=== PATIENT | male | born 1980 | race Caucasian/White ===

== ENCOUNTER 2020-11-07 09:16 | Emergency (ER) | payer BC ==
[2020-11-07] MEDS ORDERED: predniSONE 20 MG Tab PO STA (09:54)
--- NOTE | 2020-11-07 10:03 | EDM.PDOC ---
ED HPI GENERAL MEDICAL PROBLEM - General Chief Complaint: Lower Extremity Injury/Pain Stated Complaint: GOUT IN EXTREME PAIN Time Seen by Provider: 11/07/20 09:44 - History of Present Illness INITIAL COMMENTS - FREE TEXT/NARRATIVE: Patient presents the emergency department with gout. Patient states he softly arrested a light dresser on his foot after which time it triggered one of his typical gout flares. It was not heavy and there was no marked fall of the desk and the patient states there is no concern for fracture. Patient has swelling to the ankle and toe and out to the knee. Patient has had these flares more than 50 times. Moderate to severe symptoms worse with movement. No fevers. No history of diabetes or immunosuppression. No history of blood clot. No unilateral leg swelling. No recent travel, injury, cancer, surgery. No smoking or control Right Knee Pain Score (Numeric/FACES): 7 - Related Data Allergies Allergy/AdvReac Type Severity Reaction Status Date / Time No Known Allergies Allergy Verified 11/07/20 09:42 Home Meds: Home Meds Ibuprofen [Motrin] 1,000 mg PRN 12/16/15 [History] Pantoprazole Sodium [Protonix] 40 mg PO DAILY #15 tablet. 11/07/20 [Rx] predniSONE [Prednisone] 10 mg PO ASDIRECTED 16 Days #46 tablet 11/07/20 [Rx] Past Medical History - Past Health History Medical/Surgical History: Denies Medical/Surgical History HEENT History: Reports: None Cardiovascular History: Reports: None Respiratory History: Reports: None Gastrointestinal History: Reports: None Genitourinary History: Reports: Renal Calculus Musculoskeletal History: Reports: Gout Neurological History: Reports: Migraines Psychiatric History: Reports: Anxiety, Panic Attack Endocrine/Metabolic History: Reports: None Hematologic History: Reports: None Immunologic History: Reports: None Oncologic (Cancer) History: Reports: None - Infectious Disease History Infectious Disease History: Reports: None - Past Surgical History HEENT Surgical History: Reports: None Endocrine Surgical History: Reports: None Social & Family History - Family History Family Medical History: No Pertinent Family History Endocrine/Metabolic: Reports: Diabetes, Type I - Tobacco Use Tobacco Use Status *Q: Current Every Day Tobacco User Years of Tobacco use: 15 Packs/Tins Daily: 1 - Caffeine Use Caffeine Use: Reports: Soda - Recreational Drug Use Recreational Drug Use: No Review of Systems - Review of Systems Review Of Systems: See Below Constitutional: Denies: Chills, Fever Respiratory: Denies: Shortness of Breath Cardiovascular: Denies: Chest Pain Musculoskeletal: Reports: Joint Swelling Skin: Denies: Rash Neurological: Denies: Numbness, Weakness ED EXAM, GENERAL - Physical Exam Exam: See Below Free Text/Narrative:: CONSTITUTIONAL: well appearing in no acute distress SKIN: dry, and intact without rash HENT: Normocephalic, atraumatic, NECK: normal range of motion PULMONARY: normal chest rise and fall, no respiratory distress or stridor NEUROLOGIC: normal speech, moves all extremities, grossly non-focal MUSCULOSKELETAL: Patient with swelling and tenderness and warmth to the right ankle, metatarsophalangeal joint first, knee. Warm and well perfused with strong dorsalis pedis pulse. Cap refill less than 2 seconds. No swelling to the calf area PSYCHIATRIC: normal mood and affect Course - Vital Signs Text/Narrative:: Differential diagnosis: Gout, septic arthritis, DVT, rheumatoid arthritis, other Patient presents with joint pain consistent with multiple gout flares in the past. No fever just bacterial infection. Steroids with return precautions and PCP follow-up discussed Last Recorded V/S: Last Vital Signs Temp 35.9 C L 11/07/20 09:43 Pulse 93 11/07/20 09:43 Resp 18 11/07/20 09:43 BP 138/90 11/07/20 09:43 Pulse Ox 98 11/07/20 09:43 - Orders/Labs/Meds Meds: Medications Discontinued Medications Generic Name Dose Route Start Last Admin Trade Name Shy PRN Reason Stop Dose Admin Prednisone 40 mg 11/07/20 09:54 Prednisone 20 Mg Tab PO 11/07/20 09:55 NOW STA Departure - Departure Time of Disposition: 09:58 Disposition: Home, Self-Care 01 Condition: Good Clinical Impression: Gout - Discharge Information Prescriptions: predniSONE [Prednisone] 10 mg PO ASDIRECTED 16 Days #46 tablet Pantoprazole Sodium [Protonix] 40 mg PO DAILY #15 tablet. Instructions: Low-Purine Eating Plan Referrals: PCP,None [Primary Care Provider] - Forms: ED Department Discharge Additional Instructions: Return for fevers, increased pain, numbness, weakness, increasing leg swelling, change or worsening condition or lack of improvement. Take medications as prescribed. Follow-up with primary care doctor 3 to 5 days for reevaluation The following information is given to patients seen in the emergency department who are being discharged to home. This information is to outline your options for follow-up care. We provide all patients seen in our emergency department with a follow-up referral. The need for follow-up, as well as the timing and circumstances, are variable depending upon the specifics of your emergency department visit. If you don't have a primary care physician on staff, we will provide you with a referral. We always advise you to contact your personal physician following an emergency department visit to inform them of the circumstance of the visit and for follow-up with them and/or the need for any referrals to a consulting specialist. The emergency department will also refer you to a specialist when appropriate. This referral assures that you have the opportunity for follow-up care with a specialist. All of these measure are taken in an effort to provide you with optimal care, which includes your follow-up. Primary care clinics in the area: [facility] - Primary Care [address] [place] [address] [place] [address] Under all circumstances we always encourage you to contact your private physician who remains a resource for coordinating your care. When calling for follow-up care, please make the office aware that this follow-up is from your recent emergency room visit. If for any reason you are refused follow-up, please contact the [facility] Emergency Department at and asked to speak to the emergency department charge nurse. Sepsis Event Note (ED) - Evaluation Sepsis Screening Result: No Definite Risk - Focused Exam Vital Signs: Vital Signs Temp Pulse Resp BP Pulse Ox 11/07/20 09:43 35.9 C L 93 18 138/90 98
[2020-11-07 10:32] VITALS: BP 119/89; PULSE 82
== END 2020-11-07 10:26 | disposition home or self-care (01) ==
LOC: MW.ED 09:16
DX: M10.9 Gout, unspecified (principal); Z72.0 Tobacco use
CPT/HCPCS: 99283; A9270

== ENCOUNTER 2021-03-27 10:09 | Emergency (ER) | payer BC ==
[2021-03-27] MEDS ORDERED: predniSONE 20 MG Tab PO ONE (10:27)
[2021-03-27] MEDS ORDERED: Acetaminophen/HYDROcodone 325-10 MG Tab PO ONE (10:27)
--- NOTE | 2021-03-27 10:38 | EDM.PDOC ---
ED HPI GENERAL MEDICAL PROBLEM - General Chief Complaint: Lower Extremity Injury/Pain Stated Complaint: GOUT IN R KNEE Time Seen by Provider: 03/27/21 10:12 - History of Present Illness INITIAL COMMENTS - FREE TEXT/NARRATIVE: Otherwise well 40-year-old male with a history of gout presenting with pain in the right knee gradually worsening over the last few days after kneeling down on the floor similar to multiple prior gout episodes. No fever pain is severe with attempted range of motion of the right knee. Patient has been taking some leftover 10 mg prednisone tablets from his last gout flare in October with minimal improvement. Patient was seen at this facility in October he was placed on a steroid burst and taper he reports that after the 1st few days the symptoms resolved completely and so he stopped taking the medication with a plan to save it for a later date. No other injury to the knee no other complaints pain is nonradiating. General: No fever. Skin: No rash. Neck: No neck stiffness. Respiratory: No shortness of breath. Cardiac: No chest pain. Gastrointestinal: No nausea, vomiting or abdominal pain. Urinary: No dysuria. Musculoskeletal: Per HPI Neurologic: No headache. Right Knee Pain Score (Numeric/FACES): 8 - Related Data Allergies Allergy/AdvReac Type Severity Reaction Status Date / Time No Known Allergies Allergy Verified 03/27/21 10:32 Home Meds: Home Meds Ibuprofen [Motrin] 1,000 mg PRN 12/16/15 [History] Pantoprazole Sodium [Protonix] 40 mg PO DAILY #15 tablet. 11/07/20 [Rx] predniSONE [Prednisone] 10 mg PO ASDIRECTED 16 Days #46 tablet 11/07/20 [Rx] Hydrocodone/Acetaminophen [HYDROcodone-Acetaminophen 10-325 MG] 1 each PO TID PRN 4 Days #12 tab 03/27/21 [Rx] Past Medical History - Past Health History Medical/Surgical History: Denies Medical/Surgical History HEENT History: Reports: None Cardiovascular History: Reports: None Respiratory History: Reports: None Gastrointestinal History: Reports: None Genitourinary History: Reports: Renal Calculus Musculoskeletal History: Reports: Gout Neurological History: Reports: Migraines Psychiatric History: Reports: Anxiety, Panic Attack Endocrine/Metabolic History: Reports: None Hematologic History: Reports: None Immunologic History: Reports: None Oncologic (Cancer) History: Reports: None - Infectious Disease History Infectious Disease History: Reports: None - Past Surgical History HEENT Surgical History: Reports: None Endocrine Surgical History: Reports: None Social & Family History - Family History Family Medical History: No Pertinent Family History Endocrine/Metabolic: Reports: Diabetes, Type I - Caffeine Use Caffeine Use: Reports: Soda Review of Systems - Review of Systems Review Of Systems: See Below ED EXAM, GENERAL - Physical Exam Exam: See Below Free Text/Narrative:: General Appearance: No acute distress, appears comfortable Skin: No rash HEENT: Normocephalic/atraumatic, sclera anicteric, mucous membranes moist Neck: Normal range of motion Chest and Lungs: Normal work of breathing Cardiovascular: Intact distal perfusion Musculoskeletal: Right lower extremity is warm and well-perfused there is a right knee joint effusion there is no erythema but there is warmth the patient is able to range the knee voluntarily though it is painful patient has exquisite tenderness with light touch of the skin Neurologic: Awake, alert, no obvious deficits, moving all extremities Psychiatric: Appropriate, cooperative Course - Vital Signs Last Recorded V/S: Last Vital Signs Temp 97.2 F 03/27/21 10:29 Pulse 87 03/27/21 11:02 Resp 18 03/27/21 11:02 BP 156/109 H 03/27/21 11:02 Pulse Ox 99 03/27/21 11:02 - Orders/Labs/Meds Meds: Medications Discontinued Medications Generic Name Dose Route Start Last Admin Trade Name Freq PRN Reason Stop Dose Admin Hydrocodone Bitart/Acetaminophen 1 tab 03/27/21 10:27 03/27/21 11:00 Acetaminophen/Hydrocodone 325-10 Mg Tab PO 03/27/21 10:28 1 tab ONETIME ONE Administration Prednisone 50 mg 03/27/21 10:27 03/27/21 11:00 Prednisone 20 Mg Tab PO 03/27/21 10:28 50 mg ONETIME ONE Administration Departure - Departure Time of Disposition: 10:28 Disposition: Home, Self-Care 01 Condition: Good Clinical Impression: Gout attack - Discharge Information *PRESCRIPTION DRUG MONITORING PROGRAM REVIEWED*: Yes *COPY OF PRESCRIPTION DRUG MONITORING REPORT IN PATIENT TALYA: No Prescriptions: Hydrocodone/Acetaminophen [HYDROcodone-Acetaminophen 10-325 MG] 1 each PO TID PRN 4 Days #12 tab PRN Reason: severe pain Instructions: Gout, [id number] Referrals: [facility] [Ordering Only Provider] - Forms: ED Department Discharge Additional Instructions: A prescription for or a prednisone burst as well as pain medication has been sent to the pharmacy. Please be sure to take the entire course of prednisone. Be sure not to take any anti-inflammatory such as ibuprofen Advil or Aleve while you are taking the prednisone. Please also be sure to continue taking the pantoprazole as long as you are taking the prednisone. I encourage you to follow-up with a primary care doctor. You can follow-up at one of the primary clinics listed below. You have also been placed on the referral list for primary care clinic. [facility] - Primary Care [address] [place] [address] [id number] The following information is given to patients seen in the emergency department who are being discharged to home. This information is to outline your options for follow-up care. We provide all patients seen in our emergency department with a follow-up referral. The need for follow-up, as well as the timing and circumstances, are variable depending upon the specifics of your emergency department visit. If you don't have a primary care physician on staff, we will provide you with a referral. We always advise you to contact your personal physician following an emergency department visit to inform them of the circumstance of the visit and for follow-up with them and/or the need for any referrals to a consulting specialist. The emergency department will also refer you to a specialist when appropriate. This referral assures that you have the opportunity for follow-up care with a specialist. All of these measure are taken in an effort to provide you with optimal care, which includes your follow-up. Under all circumstances we always encourage you to contact your private physician who remains a resource for coordinating your care. When calling for follow-up care, please make the office aware that this follow-up is from your r ecent emergency room visit. If for any reason you are refused follow-up, please contact the [facility] Emergency Department at and asked to speak to the emergency department charge nurse. - Assessment/Plan Assessment:: 40-year-old male presenting with acute gouty arthritis of the right knee. Septic arthritis considered but patient without risk factors for this he is able to range the knee he does not have a fever and so this is felt not likely. Patient has had good response to prednisone in the past. Appropriate treatment with medication discussed and understood importance of follow-up discussed and understood. Return precautions discussed and understood. Patient discharged with a prescription for prednisone and a short prescription for [place] for pain.
[2021-03-27 11:04] VITALS: BP 156/109; PULSE 87
== END 2021-03-27 11:10 | disposition home or self-care (01) ==
LOC: MW.ED 10:09
DX: M10.9 Gout, unspecified (principal); Z79.899 Other long term (current) drug therapy
CPT/HCPCS: 99283; A9270